=== PATIENT | female | born 1950 | race Hispanic/Latino ===

== ENCOUNTER 2017-06-28 19:58 | Emergency (ER) | payer MEDICARE, OTHER ==
--- NOTE | 2017-06-28 21:05 | XRay Report ---
FINAL REPORT EXAM: XR HUMERUS 2+V RT HISTORY: fall and decreased ROM r/t fall TECHNIQUE: Two views of the right humerus PRIORS: None. FINDINGS: The bones diffusely demineralized. There is acute slightly impacted fracture of the surgical neck of the right proximal humerus. The glenohumeral joint appears normally aligned. There is osteoarthrosis of the acromioclavicular and glenohumeral joints. The soft tissues are unremarkable. IMPRESSION: 1. Acute slightly impacted fracture of the surgical neck of the right proximal humerus 2. Osteopenia is most likely due to osteoporosis
--- NOTE | 2017-06-28 21:09 | XRay Report ---
FINAL REPORT EXAM: XR SHOULDER 2+V RT HISTORY: shoulder pain r/t fall TECHNIQUE: 3 views of the right shoulder PRIORS: None. FINDINGS: There is an acute slightly impacted fracture of the surgical neck of the right proximal humerus. The glenohumeral and acromioclavicular joints are normally aligned. There is osteoarthrosis of both joints. The bones are demineralized. The soft tissues are unremarkable. IMPRESSION: Acute slightly impacted fracture of the surgical neck of the right proximal humerus Osteopenia is most likely due to osteoporosis Osteoarthrosis of the glenohumeral acromioclavicular joints
--- NOTE | 2017-06-28 22:04 | Emergency Department Report ---
ED Fall HPI - General Chief Complaint: Extremity Injury, Upper Stated Complaint: ARM PAIN Time Seen by Provider: 06/28/17 21:41 Source: patient Mode of arrival: Ambulatory - History of Present Illness Initial Comments: Patient is 66-year-old female with history of diabetes and hypertension. Patient presented to the ER complaining OF right shoulder and upper arm pain that started suddenly after she fell why she is going to her car at home. Patient denied any other injury specifically no head or neck injury. No back or other extremity pain. Patient denied any loss of consciousness, weakness, numbness or tingling sensation. Patient also denied any bowel or bladder incontinence. MD Complaint: fall -: Sudden Fall From: standing When Fall Occurred: 1-3 hours [employer] Fall Witnessed: yes, by family Place Fall Occurred: home Loss of Consciousness: none Prolonged Down Time?: no Location - Extremities: Right: Shoulder Severity: moderate Context: tripped/slipped - Related Data Home Medications Medication Instructions Recorded Confirmed Last Taken Insulin Glargine [Lantus VIAL] 80 units SQ QHS 01/23/15 03/04/16 12/10/15 Lisinopril/Hydrochlorothiazide 1 tab PO DAILY 01/23/15 03/04/16 12/10/15 [Lisinopril-Hctz 20-25 mg Tab] Metformin HCl [Glucophage] 1,000 mg PO BID 01/23/15 03/04/16 12/10/15 PARoxetine [Paxil] 20 mg PO DAILY 01/23/15 03/04/16 12/10/15 Sitagliptin Phosphate [Januvia] 100 mg PO DAILY 01/23/15 03/04/16 12/10/15 AtorvaSTATin [Lipitor] 20 mg PO DAILY 12/11/15 03/04/16 12/10/15 Previous Rx's Medication Instructions Recorded Last Taken Type Carboxymethylcellulose Sodium 2 drop OU TID #10 ml 03/04/16 Unknown Rx [Lubricant Eye Drops 1%] Valacyclovir HCl [Valtrex] 1,000 mg PO TID #7 tablet 03/04/16 Unknown Rx predniSONE [Deltasone] 60 mg PO QDAY #21 tab 03/04/16 Unknown Rx Allergies Allergy/AdvReac Type Severity Reaction Status Date / Time No Known Allergies Allergy Unverified 10/09/13 13:48 ED Review of Systems ROS: Stated complaint: ARM PAIN Other details as noted in HPI Comment: All other systems reviewed and negative Constitutional: denies: chills, fever Cardiovascular: denies: chest pain, palpitations, dyspnea on exertion Gastrointestinal: denies: abdominal pain, nausea, vomiting Musculoskeletal: arthralgia. denies: back pain Neurological: denies: headache, weakness, numbness, paresthesias ED Past Medical Hx - Past Medical History Hx Hypertension: Yes Hx Diabetes: Yes Hx Arthritis: Yes Additional medical history: High cholesterol - Surgical History Hx Cholecystectomy: Yes (1982) Hx Appendectomy: Yes (1982) Additional Surgical History: Tubaligation 1982, j[facility]. cataract surgery, Trigger finger both thumbs, Left shoulder surgery - Social History Smoking Status: Unknown if ever smoked Substance Use Type: Alcohol - Medications Home Medications: Home Medications Medication Instructions Recorded Confirmed Last Taken Type Insulin Glargine [Lantus VIAL] 80 units SQ QHS 01/23/15 03/04/16 12/10/15 History Lisinopril/Hydrochlorothiazide 1 tab PO DAILY 01/23/15 03/04/16 12/10/15 History [Lisinopril-Hctz 20-25 mg Tab] Metformin HCl [Glucophage] 1,000 mg PO BID 01/23/15 03/04/16 12/10/15 History PARoxetine [Paxil] 20 mg PO DAILY 01/23/15 03/04/16 12/10/15 History Sitagliptin Phosphate [Januvia] 100 mg PO DAILY 01/23/15 03/04/16 12/10/15 History AtorvaSTATin [Lipitor] 20 mg PO DAILY 12/11/15 03/04/16 12/10/15 History Carboxymethylcellulose Sodium 2 drop OU TID #10 ml 03/04/16 Unknown Rx [Lubricant Eye Drops 1%] Valacyclovir HCl [Valtrex] 1,000 mg PO TID #7 tablet 03/04/16 Unknown Rx predniSONE [Deltasone] 60 mg PO QDAY #21 tab 03/04/16 Unknown Rx ED Physical Exam - General Limitations: No Limitations General appearance: alert, in no apparent distress - Head Head exam: Present: atraumatic, normocephalic, normal inspection - Eye Eye exam: Present: normal appearance, PERRL - ENT ENT exam: Present: normal exam, normal orophraynx, mucous membranes moist - Neck Neck exam: Present: normal inspection, full ROM. Absent: tenderness, meningismus, lymphadenopathy, thyromegaly - Respiratory Respiratory exam: Present: normal lung sounds bilaterally. Absent: respiratory distress, wheezes, rales, rhonchi, stridor, chest wall tenderness, accessory muscle use, decreased breath sounds, prolonged expiratory - Cardiovascular Cardiovascular Exam: Present: regular rate, normal rhythm, normal heart sounds - GI/Abdominal GI/Abdominal exam: Present: soft, normal bowel sounds. Absent: distended, tenderness, guarding, rebound, rigid, organomegaly, mass, bruit, pulsatile mass , hernia - Extremities Exam Extremities exam: Present: normal inspection, full ROM, normal capillary refill. Absent: pedal edema, calf tenderness - Expanded Upper Extremity Exam Right Shoulder Exam: Present: tenderness, swelling. Absent: full ROM, abrasion, laceration, ecchymosis, deformity, dislocation, erythema Upper Arm exam: Present: normal inspection, tenderness. Absent: full ROM, laceration, crepidus, dislocation Elbow exam: Present: normal inspection, full ROM. Absent: tenderness, swelling , abrasion Forearm Wrist exam: Present: normal inspection, full ROM Hand Wrist exam: Present: normal inspection, full ROM. Absent: tenderness, swelling Neuro motor exam: Present: wrist extension intact, thumb opposition intact, thumb IP flexion intact, thumb adduction intact, fingers 2-5 abduction intact Neurosensory exam: Present: 2-point discrimination, radial nerve intact, ulnar nerve intact, median nerve intact - Back Exam Back exam: Present: normal inspection, full ROM - Neurological Exam Neurological exam: Present: alert, oriented X3, CN II-XII intact, normal gait - Skin Skin exam: Present: warm, intact, normal color ED Course Vital Signs 06/28/17 20:08 Temperature 97.7 F Pulse Rate 102 H Respiratory 18 Rate Blood Pressure 150/70 O2 Sat by Pulse 94 Oximetry ED Medical Decision Making - Radiology Data Radiology results: report reviewed Referring Physician: ED DOC Patient Name: MI ROSALES Date of : 1950 Sex: Female Report Date: 2017-06-28 Report Status: Finalized Findings [facility] [address] [place] [address] XRay Report Signed Patient: MI ROSALES MR#: [id number] : 1950 Acct:[id number] Age/Sex: 66 / F ADM Date: 06/28/17 Loc: ED Attending Dr: Ordering Physician: JENNA MEDINA MD Date of Service: 06/28/17 Procedure(s): XR humerus 2+V RT Accession Number(s): [id number] cc: JENNA MEDINA MD Fluoro Time In Minutes: FINAL REPORT EXAM: XR HUMERUS 2+V RT HISTORY: fall and decreased ROM r/t fall TECHNIQUE: Two views of the right humerus PRIORS: None. FINDINGS: The bones diffusely demineralized. There is acute slightly impacted fracture of the surgical neck of the right proximal humerus. The glenohumeral joint appears normally aligned. There is osteoarthrosis of the acromioclavicular and glenohumeral joints. The soft tissues are unremarkable. IMPRESSION: 1. Acute slightly impacted fracture of the surgical neck of the right proximal humerus 2. Osteopenia is most likely due to osteoporosis Transcribed By: [facility] [place] Dictated By: AILEEN SWAIN MD Electronically Authenticated By: AILEEN SWAIN MD Signed Date/Time: 06/28/172099 DD/ 99 TD/TT: 06/28/172099 - Medical Decision Making I discussed the patient was Dr. Jules. Dr. Jules stated that patient can follow-up was seen in his office in the next 2-3 days. Patient and family agreed with the plan. I provided them with a prescription for Percocet and Zofran. I advised patient to return to the ER if her symptoms are not controlled. Critical care attestation.: If time is entered above; I have spent that time in minutes in the direct care of this critically ill patient, excluding procedure time. ED Disposition Clinical Impression: Closed right humeral fracture Disposition: DC-01 TO HOME OR SELFCARE Is pt being admited?: No Condition: Stable Instructions: Arm Fracture in Adults (ED) Referrals: EDWARD JULES MD [Staff Physician] - 3-5 Days
[2017-06-28] MEDS ORDERED: ZOFRAN IM ONE (22:08)
[2017-06-28] MEDS ORDERED: MORPHINE IM ONE (22:08)
[2017-06-28 22:36] VITALS: BP 151/94
== END 2017-06-28 22:43 | disposition home or self-care (01) ==
LOC: ED 19:58
DX: S42.201A Unspecified fracture of upper end of right humerus, initial encounter for closed fracture (principal); W18.30XA Fall on same level, unspecified, initial encounter; Y93.89 Activity, other specified; Y92.89 Other specified places as the place of occurrence of the external cause; Y99.8 Other external cause status
CPT/HCPCS: 73030; 73060; 96372; 99283; J2270; J2405

== ENCOUNTER 2017-07-02 19:11 | Emergency (ER) | payer MEDICARE, OTHER ==
[2017-07-03] MEDS ORDERED: PERCOCET 5/325 ONE (00:53)
[2017-07-03] MEDS ORDERED: PERCOCET 5/325 PO ONE (00:58)
--- NOTE | 2017-07-03 03:48 | Emergency Department Report ---
Upper Extremity - HPI Chief Complaint: Extremity Injury, Upper Stated Complaint: RIGHT ARM,SHOULDER PAIN Time Seen by Provider: 07/03/17 03:24 Upper Extremity: Right Shoulder ED Review of Systems ROS: Stated complaint: RIGHT ARM,SHOULDER PAIN Other details as noted in HPI ED Past Medical Hx - Past Medical History Hx Hypertension: Yes Hx Diabetes: Yes Hx Arthritis: Yes Additional medical history: High cholesterol - Surgical History Hx Cholecystectomy: Yes (1982) Hx Appendectomy: Yes (1982) Additional Surgical History: Tubaligation 1982, j[facility]. cataract surgery, Trigger finger both thumbs, Left shoulder surgery - Social History Smoking Status: Never Smoker Substance Use Type: None - Medications Home Medications: Home Medications Medication Instructions Recorded Confirmed Last Taken Type Insulin Glargine [Lantus VIAL] 80 units SQ QHS 01/23/15 03/04/16 12/10/15 History Lisinopril/Hydrochlorothiazide 1 tab PO DAILY 01/23/15 03/04/16 12/10/15 History [Lisinopril-Hctz 20-25 mg Tab] Metformin HCl [Glucophage] 1,000 mg PO BID 01/23/15 03/04/16 12/10/15 History PARoxetine [Paxil] 20 mg PO DAILY 01/23/15 03/04/16 12/10/15 History Sitagliptin Phosphate [Januvia] 100 mg PO DAILY 01/23/15 03/04/16 12/10/15 History AtorvaSTATin [Lipitor] 20 mg PO DAILY 12/11/15 03/04/16 12/10/15 History Carboxymethylcellulose Sodium 2 drop OU TID #10 ml 03/04/16 Unknown Rx [Lubricant Eye Drops 1%] Valacyclovir HCl [Valtrex] 1,000 mg PO TID #7 tablet 03/04/16 Unknown Rx predniSONE [Deltasone] 60 mg PO QDAY #21 tab 03/04/16 Unknown Rx Ondansetron [Zofran Odt] 4 mg PO Q8HR PRN #14 tab.rapdis 06/28/17 Unknown Rx oxyCODONE /ACETAMINOPHEN [Percocet 1 tab PO Q6HR PRN #14 tablet 06/28/17 Unknown Rx 5/325] oxyCODONE /ACETAMINOPHEN [Percocet 1 tab PO Q6HR PRN #12 tablet 07/03/17 Unknown Rx 5/325] Upper Extremity Exam - Exam General: Vital signs noted. No distress. Alert and acting appropriately. ED Course Vital Signs 07/02/17 07/03/17 20:48 00:59 Temperature 98.3 F Pulse Rate 96 H Respiratory 18 18 Rate Blood Pressure 144/63 O2 Sat by Pulse 96 Oximetry Critical care attestation.: If time is entered above; I have spent that time in minutes in the direct care of this critically ill patient, excluding procedure time. ED Disposition Clinical Impression: Closed right humeral fracture Qualifiers: Encounter type: initial encounter Disposition: - TO HOME OR SELFCARE Is pt being admited?: No Does the pt Need Aspirin: No Condition: Stable Instructions: Arm Fracture in Adults (ED) Prescriptions: oxyCODONE /ACETAMINOPHEN [Percocet 5/325] 1 tab PO Q6HR PRN #12 tablet PRN Reason: Pain Referrals: EDWARD JORDAN MD [Staff Physician] - 3-5 Days Forms: Accompanied Note Time of Disposition: 04:12
[2017-07-03] MEDS ORDERED: DILAUDID IM ONE (03:57)
[2017-07-03 04:33] VITALS: BP 132/68
== END 2017-07-03 04:32 | disposition home or self-care (01) ==
LOC: ED 19:11
DX: S42.301A Unspecified fracture of shaft of humerus, right arm, initial encounter for closed fracture (principal); I10 Essential (primary) hypertension; E11.9 Type 2 diabetes mellitus without complications; M19.90 Unspecified osteoarthritis, unspecified site; E78.00 Pure hypercholesterolemia, unspecified; X58.XXXA Exposure to other specified factors, initial encounter; Y93.89 Activity, other specified; Y92.89 Other specified places as the place of occurrence of the external cause; Y99.8 Other external cause status
CPT/HCPCS: 29105; 96372; 99282; J1170

== ENCOUNTER 2017-07-24 12:32 | Outpatient (CLI) | payer MEDICARE, OTHER ==
--- NOTE | 2017-07-24 13:39 | XRay Report ---
RIGHT SHOULDER, 3 VIEWS: HISTORY: Fracture of right shoulder girdle. The comminuted fracture of the right humeral head and neck appears unchanged in position and alignment since 06/28/17. Mild calcified callus is identified at the fracture site consistent with interval healing although fracture lines remain evident. The remaining bony structures are intact. Advanced osteoarthritis is stable. IMPRESSION: Healing fracture of the proximal right humerus as described.
== END 2017-07-24 12:33 | disposition home or self-care (01) ==
LOC: XRAY 12:32
PROVIDERS: ATTEND Orthopaedic Surgery
DX: S42.291D Other displaced fracture of upper end of right humerus, subsequent encounter for fracture with routine healing (principal); X58.XXXD Exposure to other specified factors, subsequent encounter; M19.011 Primary osteoarthritis, right shoulder

== ENCOUNTER 2017-09-25 16:20 | Outpatient (CLI) | payer MEDICARE, OTHER ==
--- NOTE | 2017-09-26 00:31 | XRay Report ---
FINAL REPORT EXAM: XR SHOULDER 2+V RT HISTORY: FRAACTURE OF RIGHT SHOULDER GIRDLE COMPARISON: June 2017. FINDINGS: Three views the right shoulder obtained. Prominent osteophyte of the distal clavicle with narrowing of the AC joint. Re-demonstration of comminuted fracture impacted fracture of the humeral head neck. Faint fracture line remain with callus formation at the fracture sites compared to prior study. Findings are compatible partial interval healing. Stable narrowing of the glenohumeral joint space. No dislocation. Osteophyte along the glenoid rim. IMPRESSION: Partial healing of comminuted and impacted humeral neck and head fracture. Stable degenerative changes.
--- NOTE | 2017-09-26 00:32 | XRay Report ---
FINAL REPORT EXAM: XR KNEES STANDING AP BILATERAL HISTORY: PAIN IN BILATERAL KNEES COMPARISON: None available. FINDINGS: Two views of each knee obtained with weight-bearing. On the left, there is minimal narrowing of the medial joint space with mild marginal osteophyte of the medial lateral femoral condyles. Moderate narrowing of the patellofemoral joint space with osteophyte. No suprapatellar effusion. No acute fracture. Medial lateral joint space compartments of the right knee are preserved. Mild narrowing hypertrophic spurring of the patellofemoral joint space. No suprapatellar effusion. No acute fracture. IMPRESSION: Moderate degenerative changes of the left knee most pronounced along the patellofemoral joint space compartment. Mild degenerative changes the right knee most pronounced along the patellofemoral joint space compartment.
== END 2017-09-25 16:21 | disposition home or self-care (01) ==
LOC: XRAY 16:20
PROVIDERS: ATTEND Orthopaedic Surgery
DX: S42.91XD Fracture of right shoulder girdle, part unspecified, subsequent encounter for fracture with routine healing (principal); M17.0 Bilateral primary osteoarthritis of knee; M19.011 Primary osteoarthritis, right shoulder; I10 Essential (primary) hypertension; Z90.49 Acquired absence of other specified parts of digestive tract; Z90.89 Acquired absence of other organs; X58.XXXD Exposure to other specified factors, subsequent encounter
CPT/HCPCS: 73565

== ENCOUNTER 2019-12-12 02:07 | Emergency (ER) | payer MEDICARE, OTHER ==
[2019-12-12 02:24] VITALS: BP 150/77
--- NOTE | 2019-12-12 03:09 | XRay Report ---
LEFT FOOT 3 VIEWS INDICATION / CLINICAL INFORMATION: left foot red ands swollen. COMPARISON: None available. FINDINGS: BONES/JOINT(S): No acute fracture or subluxation. Mild DJD first MTP joint. No bone lysis to suggest osteomyelitis. SOFT TISSUES: Mild generalized soft tissue swelling. No radiopaque foreign body or soft tissue gas. ADDITIONAL FINDINGS: None. Signer Name: Denzel Hernandez MD Signed: 12/12/2019 3:04 AM Workstation Name: [id number]
[2019-12-12] MEDS ORDERED: ACETAMINOPHEN 500 MG TAB PO ONE (04:13)
[2019-12-12 04:49] LABS: Basophils # (Auto) 0.1 K/mm3 (0.0-0.1); Basophils % (Auto) 1.1 % (0.0-1.8); Eosinophils # (Auto) 0.6 K/mm3 (0.0-0.4); Eosinophils % (Auto) 5.4 % (0.0-4.3); Hemoglobin 12.9 gm/dl (10.1-14.3); Lymphocytes # (Auto) 4.2 K/mm3 (1.2-5.4); Lymphocytes % (Auto) 36.7 % (13.4-35.0); Monocytes # (Auto) 0.7 K/mm3 (0.0-0.8); Monocytes % (Auto) 6.1 % (0.0-7.3)
[2019-12-12 04:56] LABS: Hematocrit 37.9 % (30.3-42.9); Mean Corpuscular HGB Conc 34 % (30-34); Mean Corpuscular Volume 87 fl (79-97); Platelet Count 264 K/mm3 (140-440); Red Blood Count 4.35 M/mm3 (3.65-5.03); Red Cell Distribution Width 15.6 % (13.2-15.2)
[2019-12-12 05:12] LABS: Alanine Aminotransferase 20 units/L (7-56); Blood Urea Nitrogen 14 mg/dL (7-17); Calcium 10.1 mg/dL (8.4-10.2); Hemolysis Index 199; Uric Acid 5.9 mg/dL (3.5-7.6)
[2019-12-12 05:15] LABS: BUN/Creatinine Ratio 20
--- NOTE | 2019-12-12 05:55 | Emergency Department Report ---
ED Extremity Problem HPI - General Chief complaint: Extremity Injury, Lower Stated complaint: LT FOOT PAIN Source: patient Mode of arrival: Ambulatory Limitations: No Limitations - History of Present Illness Initial comments: Patient is a 69-year-old white female with a history of hypertension and xqm-hvmnooq-ugutwcmjv diabetes as well as osteoarthritis who presents to the ED with complaint of acute onset persistent painful dorsal left foot with swelling and erythematous maculopapular rash with itching and burning sensation for the last 24 hours. Patient states that she suspects that she may have been bitten by an unknown insect before the development of the symptoms. Patient denies fall, traumatic injury, heavy lifting, nausea, vomiting, fever, chills, numbness and tingling or weakness of left leg, chest pain, shortness of breath or low back pain. MD Complaint: extremity pain (Left foot), extremity swelling (Left foot), joint swelling (left foot), joint paint (left foot), other (Insect bite of left foot) -: Sudden, hour(s) (24) Location: left, lower extremity (left foot) History of Same: No -: Yes myalgia, Yes arthralgia, No fever, No associated dyspnea, No associated chest pain Radiation: distal Severity scale (0 -10): 5 Quality: burning, aching, sharp, constant Consistency: constant Improves with: nothing Worsens with: weight bearing, exertion, palpation Associated Symptoms: denies other symptoms, myalgias, arthralgias, rash (erythematous rash on dorsal left foot). denies: chest pain, shortness of breath, fever - Related Data Home Medications Medication Instructions Recorded Confirmed Last Taken Insulin Glargine [Lantus VIAL] 80 units SQ QHS 01/23/15 03/04/16 12/10/15 Lisinopril/Hydrochlorothiazide 1 tab PO DAILY 01/23/15 03/04/16 12/10/15 [Lisinopril-Hctz 20-25 mg Tab] Metformin HCl [Glucophage] 1,000 mg PO BID 01/23/15 03/04/16 12/10/15 PARoxetine [Paxil] 20 mg PO DAILY 01/23/15 03/04/16 12/10/15 Sitagliptin Phosphate [Januvia] 100 mg PO DAILY 01/23/15 03/04/16 12/10/15 AtorvaSTATin [Lipitor] 20 mg PO DAILY 12/11/15 03/04/16 12/10/15 Previous Rx's Medication Instructions Recorded Last Taken Type Carboxymethylcellulose Sodium 2 drop OU TID #10 ml 03/04/16 Unknown Rx [Lubricant Eye Drops 1%] Valacyclovir HCl [Valtrex] 1,000 mg PO TID #7 tablet 03/04/16 Unknown Rx predniSONE [Deltasone] 60 mg PO QDAY #21 tab 03/04/16 Unknown Rx Ondansetron [Zofran Odt] 4 mg PO Q8HR PRN #14 tab.rapdis 06/28/17 Unknown Rx oxyCODONE /ACETAMINOPHEN [Percocet 1 tab PO Q6HR PRN #14 tablet 06/28/17 Unknown Rx 5/325] oxyCODONE /ACETAMINOPHEN [Percocet 1 tab PO Q6HR PRN #12 tablet 07/03/17 Unknown Rx 5/325] Ibuprofen [Motrin] 800 mg PO Q8HR PRN #30 tablet 12/12/19 Unknown Rx Sulfamethoxazole/Trimethoprim 1 each PO Q12H #20 tablet 12/12/19 Unknown Rx [Bactrim DS TAB] traMADoL [Ultram] 50 mg PO Q6HR PRN #12 tablet 12/12/19 Unknown Rx Allergies Allergy/AdvReac Type Severity Reaction Status Date / Time No Known Allergies Allergy Unverified 10/09/13 13:48 ED Review of Systems ROS: Stated complaint: LT FOOT PAIN Other details as noted in HPI Constitutional: denies: chills, fever Eyes: denies: eye pain, eye discharge, vision change ENT: denies: ear pain, throat pain Respiratory: denies: cough, shortness of breath, wheezing Cardiovascular: denies: chest pain, palpitations Endocrine: no symptoms reported Gastrointestinal: denies: abdominal pain, nausea, diarrhea Genitourinary: denies: urgency, dysuria, discharge Musculoskeletal: joint swelling (Left foot swelling with pain), arthralgia (Left foot pain with swelling), other (Painful and mildly swollen dorsal left foot). denies: back pain Skin: rash (Erythematous maculopapular rash on dorsal left foot), change in color, pruritus. denies: lesions Neurological: denies: headache, weakness, paresthesias Psychiatric: denies: anxiety, depression Hematological/Lymphatic: denies: easy bleeding, easy bruising ED Past Medical Hx - Past Medical History Hx Hypertension: Yes Hx Diabetes: Yes Hx Arthritis: Yes Additional medical history: High cholesterol - Surgical History Past Surgical History?: Yes Hx Cholecystectomy: Yes (1982) Hx Appendectomy: Yes (1982) Additional Surgical History: Tubaligation 1982, jorden. cataract surgery, Trigger finger both thumbs, Left shoulder surgery - Social History Smoking Status: Former Smoker Substance Use Type: None - Medications Home Medications: Home Medications Medication Instructions Recorded Confirmed Last Taken Type Insulin Glargine [Lantus VIAL] 80 units SQ QHS 01/23/15 03/04/16 12/10/15 History Lisinopril/Hydrochlorothiazide 1 tab PO DAILY 01/23/15 03/04/16 12/10/15 History [Lisinopril-Hctz 20-25 mg Tab] Metformin HCl [Glucophage] 1,000 mg PO BID 01/23/15 03/04/16 12/10/15 History PARoxetine [Paxil] 20 mg PO DAILY 01/23/15 03/04/16 12/10/15 History Sitagliptin Phosphate [Januvia] 100 mg PO DAILY 01/23/15 03/04/16 12/10/15 History AtorvaSTATin [Lipitor] 20 mg PO DAILY 12/11/15 03/04/16 12/10/15 History Carboxymethylcellulose Sodium 2 drop OU TID #10 ml 03/04/16 Unknown Rx [Lubricant Eye Drops 1%] Valacyclovir HCl [Valtrex] 1,000 mg PO TID #7 tablet 03/04/16 Unknown Rx predniSONE [Deltasone] 60 mg PO QDAY #21 tab 03/04/16 Unknown Rx Ondansetron [Zofran Odt] 4 mg PO Q8HR PRN #14 tab.rapdis 06/28/17 Unknown Rx oxyCODONE /ACETAMINOPHEN [Percocet 1 tab PO Q6HR PRN #14 tablet 06/28/17 Unknown Rx 5/325] oxyCODONE /ACETAMINOPHEN [Percocet 1 tab PO Q6HR PRN #12 tablet 07/03/17 Unknown Rx 5/325] Ibuprofen [Motrin] 800 mg PO Q8HR PRN #30 tablet 12/12/19 Unknown Rx Sulfamethoxazole/Trimethoprim 1 each PO Q12H #20 tablet 12/12/19 Unknown Rx [Bactrim DS TAB] traMADoL [Ultram] 50 mg PO Q6HR PRN #12 tablet 12/12/19 Unknown Rx ED Physical Exam - General Limitations: No Limitations General appearance: alert, in no apparent distress - Head Head exam: Present: atraumatic, normocephalic, normal inspection - Eye Eye exam: Present: normal appearance, PERRL, EOMI Pupils: Present: normal accommodation - ENT ENT exam: Present: normal exam, normal orophraynx, mucous membranes moist, TM's normal bilaterally, normal external ear exam - Neck Neck exam: Present: normal inspection, full ROM - Respiratory Respiratory exam: Present: normal lung sounds bilaterally. Absent: respiratory distress, wheezes, rales, rhonchi, chest wall tenderness, accessory muscle use, decreased breath sounds, prolonged expiratory - Cardiovascular Cardiovascular Exam: Present: regular rate, normal rhythm, normal heart sounds. Absent: systolic murmur, diastolic murmur, rubs, gallop - GI/Abdominal GI/Abdominal exam: Present: soft, normal bowel sounds. Absent: tenderness, guarding, rebound, hyperactive bowel sounds, hypoactive bowel sounds, organomegaly - Extremities Exam Extremities exam: Present: normal inspection, full ROM, tenderness (Palpable moderate dorsal left foot tenderness with swelling due to erythematous maculopapular rash), normal capillary refill, joint swelling. Absent: calf tenderness - Back Exam Back exam: Present: normal inspection, full ROM. Absent: tenderness, CVA tenderness (R), CVA tenderness (L), muscle spasm, paraspinal tenderness, vertebral tenderness, rash noted - Neurological Exam Neurological exam: Present: alert, oriented X3, CN II-XII intact, normal gait, reflexes normal - Psychiatric Psychiatric exam: Present: normal affect, normal mood - Skin Skin exam: Present: warm, dry, intact, normal color, rash (Erythematous maculopapular rash on dorsal left foot), erythema, urticaria ED Course Vital Signs 12/12/19 02:13 Temperature 98.4 F Pulse Rate 96 H Respiratory 18 Rate Blood Pressure 150/77 O2 Sat by Pulse 95 Oximetry ED Medical Decision Making - Lab Data Result diagrams: 12/12/19 04:31 12/12/19 04:31 - Radiology Data Radiology results: report reviewed, image reviewed Findings [facility] [address] [place] [address] XRay Report Signed Patient: MI ROSALES MR#: [id number] : 1950 Acct:[id number] Age/Sex: 69 / F ADM Date: 12/12/19 Loc: ED Attending Dr: Ordering Physician: JENNA MEDINA MD Date of Service: 12/12/19 Procedure(s): XR foot 3+V LT Accession Number(s): [id number] cc: JENNA MEDINA MD Fluoro Time In Minutes: LEFT FOOT 3 VIEWS INDICATION / CLINICAL INFORMATION: left foot red ands swollen. COMPARISON: None available. FINDINGS: BONES/JOINT(S): No acute fracture or subluxation. Mild DJD first MTP joint. No bone lysis to suggest osteomyelitis. SOFT TISSUES: Mild generalized soft tissue swelling. No radiopaque foreign body or soft tissue gas. ADDITIONAL FINDINGS: None. Signer Name: Denzel Hernandez MD Signed: 12/12/2019 3:04 AM Workstation Name: [id number] Transcribed By: SCOOBY Dictated By: Denzel Hernandez MD Electronically Authenticated By: Denzel Hernandez MD Signed Date/Time: 12/12/19303 DD/ 3 TD/TT: - Medical Decision Making This is a 69-year-old white female with a history of hypertension and elf-[id number] diabetes as well as osteoarthritis who presents to the ED with complaint of acute onset persistent painful dorsal left foot with swelling and erythematous maculopapular rash with itching and burning sensation for the last 24 hours. Patient states that she suspects that she may have been bitten by an unknown insect before the development of the symptoms. In the ED, patient is alert and oriented x3 and is not in distress. Patient was treated for pain in the ED and also given empirical antibiotics clindamycin IV x1. Lab test results were reviewed and showed mild acute leukocytosis of 11,500 and hyperglycemia of 189 mg/dL. The rest of the lab test results including uric acid levels were normal. Left foot x-ray shows no acute fractures or subluxations. On reevaluation, patient felt better pain is well controlled medications. Patient was discharged home on pain medication and antibiotics. Patient was advised to return to the ED immediately if symptoms get worse, otherwise follow-up with her primary care physician in 5 to 7 days for reevaluation. - Differential Diagnosis Cellulitis; allergic reaction; insect bite; osteoarthritis; gout Critical care attestation.: If time is entered above; I have spent that time in minutes in the direct care of this critically ill patient, excluding procedure time. ED Disposition Clinical Impression: Cellulitis of left foot excluding toes Insect bite of left foot with local reaction Qualifiers: Encounter type: initial encounter Qualified Code(s): S90.862A - Insect bite (nonvenomous), left foot, initial encounter; W57.XXXA - Bitten or stung by nonvenomous insect and other nonvenomous arthropods, initial encounter Disposition: TO HOME OR SELFCARE Is pt being admited?: No Does the pt Need Aspirin: No Condition: Stable Instructions: Cellulitis (ED), Insect Bite or Sting (ED), Allergies (ED), Urticaria (ED) Additional Instructions: All lab test results are nonactionable. Left foot x-ray shows no acute fractures or subluxations. Take medications with food, drink plenty of fluids and follow-up with your primary care physician in 5 to 7 days for reevaluation. Return to the ED immediately if symptoms get worse. Prescriptions: Sulfamethoxazole/Trimethoprim [Bactrim DS TAB] 1 each PO Q12H #20 tablet Ibuprofen [Motrin] 800 mg PO Q8HR PRN #30 tablet PRN Reason: Pain , Severe (7-10) traMADoL [Ultram] 50 mg PO Q6HR PRN #12 tablet PRN Reason: Pain Referrals: BRENDON SCHMIDT MD [Staff Physician] - 3-5 Days Time of Disposition: 05:53 Print Language: MALTESE
== END 2019-12-12 06:30 | disposition home or self-care (01) ==
LOC: ED 02:07
DX: S90.862A Insect bite (nonvenomous), left foot, initial encounter (principal); L03.116 Cellulitis of left lower limb; I10 Essential (primary) hypertension; E11.9 Type 2 diabetes mellitus without complications; M19.91 Primary osteoarthritis, unspecified site; Z90.49 Acquired absence of other specified parts of digestive tract; Z98.51 Tubal ligation status; Z98.890 Other specified postprocedural states; Z79.899 Other long term (current) drug therapy; Z79.4 Long term (current) use of insulin; Z79.1 Long term (current) use of non-steroidal anti-inflammatories (NSAID); Z87.891 Personal history of nicotine dependence; W57.XXXA Bitten or stung by nonvenomous insect and other nonvenomous arthropods, initial encounter; Y93.89 Activity, other specified; Y92.89 Other specified places as the place of occurrence of the external cause; Y99.8 Other external cause status
CPT/HCPCS: 36415; 80053; 84550; 85025; 96365

== ENCOUNTER 2019-12-30 15:02 | Emergency (ER) | payer MEDICARE, OTHER ==
--- NOTE | 2019-12-30 16:27 | Event Note ---
ED Screening Note Date of service: 12/30/19 Time: 16:23 ED Screening Note: Pt c/o buttocks and mid back pain x 3 days and dizziness x last night fell on escalator onto bottom and hit head; denies LoC, N/V, CP, SOB denies numbness/difficulty walking/loss of bladder bowel control This initial assessment/diagnostic orders/clinical plan/treatment(s) is/are subject to change based on patients health status, clinical progression and re- assessment by fellow clinical providers in the ED. Further treatment and workup at subsequent clinical providers discretion. Patient/guardian urged not to elope from the ED as their condition may be serious if not clinically assessed and managed. Initial orders include: XRs labs ekg
--- NOTE | 2019-12-30 17:28 | XRay Report ---
THORACIC SPINE 2 VIEWS INDICATION: Back pain, injury. COMPARISON: None. IMPRESSION: Normal alignment. Moderate multilevel degenerative disc disease is evident. No acute o sseous or soft tissue abnormality. SACRUM AND COCCYX 2 VIEWS INDICATION: Pain injury. COMPARISON: None. IMPRESSION: No acute osseous abnormality is appreciated. No diastases. There are moderate osteoarthr itic changes at the SI joints. Signer Name: Jose Guardado Jr, MD Signed: 12/30/2019 5:23 PM Workstation Name: [id number]
--- NOTE | 2019-12-30 17:36 | XRay Report ---
LUMBAR SPINE 3 VIEWS INDICATION / CLINICAL INFORMATION: MAIN. COMPARISON: None available. FINDINGS: Narrowing of the L4-5 disc space. Anterior osteophyte formation in the thoracolumbar region. No other significant skeletal abnormality. Alignment is normal. Signer Name: Rasheed Juárez MD FACHeather Signed: 12/30/2019 5:31 PM Workstation Name: [id number]
--- NOTE | 2019-12-30 17:40 | Cat Scan Report ---
CT HEAD WITHOUT CONTRAST INDICATION / CLINICAL INFORMATION: dizziness after head injury. TECHNIQUE: Axial imaging performed from the skull apex through the skull base without the use of cont rast. Sagittal and coronal reformatted images. All CT scans at this location are performed using CT dose reduction for ALARA by means of automated exposure control. COMPARISON: None available. FINDINGS: CEREBRAL PARENCHYMA: No significant abnormality. No acute territorial infarct. HEMORRHAGE: None. EXTRA-AXIAL SPACES: Normal in size and morphology for the patient's age. VENTRICULAR SYSTEM: Normal in size and morphology for the patient's age. MIDLINE SHIFT OR HERNIATION: None. CEREBELLUM / BRAINSTEM: No significant abnormality. CALVARIUM: No significant abnormality. ORBITS: Normal as visualized. PARANASAL SINUSES / MASTOID AIR CELLS: Normal as visualized. SOFT TISSUES of HEAD: Left parietal soft tissue swelling/hematoma is noted measuring 2.6 x 0.7 cm in axial plane. ADDITIONAL FINDINGS: None. IMPRESSION: No acute intracranial abnormality. Left parietal soft tissue injury. Signer Name: Jose Guardado Jr, MD Signed: 12/30/2019 5:36 PM Workstation Name: [id number]
[2019-12-30 17:52] LABS: Basophils # (Auto) 0.1 K/mm3 (0.0-0.1); Eosinophils # (Auto) 0.3 K/mm3 (0.0-0.4); Eosinophils % (Auto) 2.8 % (0.0-4.3); Hematocrit 39.3 % (30.3-42.9); Hemoglobin 12.7 gm/dl (10.1-14.3); Lymphocytes # (Auto) 2.7 K/mm3 (1.2-5.4); Lymphocytes % (Auto) 23.8 % (13.4-35.0); Mean Corpuscular HGB Conc 32 % (30-34); Mean Corpuscular Volume 90 fl (79-97); Monocytes # (Auto) 0.7 K/mm3 (0.0-0.8); Monocytes % (Auto) 6.1 % (0.0-7.3); Platelet Count 252 K/mm3 (140-440); Red Blood Count 4.36 M/mm3 (3.65-5.03); Red Cell Distribution Width 15.5 % (13.2-15.2)
[2019-12-30 18:12] LABS: Alanine Aminotransferase 12 units/L (7-56); Albumin 4.2 g/dL (3.9-5); BUN/Creatinine Ratio 30; Blood Urea Nitrogen 27 mg/dL (7-17); Calcium 9.7 mg/dL (8.4-10.2); Hemolysis Index 4
[2019-12-30] MEDS ORDERED: ONDANSETRON 4 MG/2 ML INJ IM ONE (21:46)
[2019-12-30] MEDS ORDERED: MORPHINE 4 MG/1 ML INJ IM ONE (21:46)
--- NOTE | 2019-12-30 21:52 | Emergency Department Report ---
ED Fall HPI - General Chief Complaint: Fall Stated Complaint: ABD PAINS Time Seen by Provider: 12/30/19 16:23 Source: patient Mode of arrival: Ambulatory - History of Present Illness Initial Comments: Patient is 69 years old female with history of hypertension and diabetes. Grecia ent presented to the ER for evaluation after a fall that happened 3 days ago. Patient stated that she missed a step and fell from a escalator few steps down landed on her buttock. Patient stated that she hit her head also. She is complaining of headache mid thoracic and lower lumbar pain. Patient denied any focal weakness, numbness or tingling sensation. No bowel or bladder incontinence. Patient stated that she was diagnosed with COVID-19 few months ago and since then she has been having some dizziness but since the accident is getting worse. 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 (3) Place Fall Occurred: street Loss of Consciousness: none Prolonged Down Time?: no Symptoms Prior to Fall: none Context: tripped/slipped Associated Symptoms: denies - Related Data Home Medications Medication Instructions Recorded Confirmed Last Taken Insulin Glargine [Lantus VIAL] 80 units SQ QHS 01/23/15 03/04/16 12/10/15 Lisinopril/Hydrochlorothiazide 1 tab PO DAILY 01/23/15 03/04/16 12/10/15 [Lisinopril-Hctz 20-25 mg Tab] Metformin HCl [Glucophage] 1,000 mg PO BID 01/23/15 03/04/16 12/10/15 PARoxetine [Paxil] 20 mg PO DAILY 01/23/15 03/04/16 12/10/15 Sitagliptin Phosphate [Januvia] 100 mg PO DAILY 01/23/15 03/04/16 12/10/15 AtorvaSTATin [Lipitor] 20 mg PO DAILY 12/11/15 03/04/16 12/10/15 Previous Rx's Medication Instructions Recorded Last Taken Type Carboxymethylcellulose Sodium 2 drop OU TID #10 ml 03/04/16 Unknown Rx [Lubricant Eye Drops 1%] Valacyclovir HCl [Valtrex] 1,000 mg PO TID #7 tablet 03/04/16 Unknown Rx predniSONE [Deltasone] 60 mg PO QDAY #21 tab 03/04/16 Unknown Rx Ondansetron [Zofran Odt] 4 mg PO Q8HR PRN #14 tab.rapdis 06/28/17 Unknown Rx oxyCODONE /ACETAMINOPHEN [Percocet 1 tab PO Q6HR PRN #14 tablet 06/28/17 Unknown Rx 5/325] oxyCODONE /ACETAMINOPHEN [Percocet 1 tab PO Q6HR PRN #12 tablet 07/03/17 Unknown Rx 5/325] Ibuprofen [Motrin] 800 mg PO Q8HR PRN #30 tablet 12/12/19 Unknown Rx Sulfamethoxazole/Trimethoprim 1 each PO Q12H #20 tablet 12/12/19 Unknown Rx [Bactrim DS TAB] traMADoL [Ultram] 50 mg PO Q6HR PRN #12 tablet 12/12/19 Unknown Rx Allergies Allergy/AdvReac Type Severity Reaction Status Date / Time No Known Allergies Allergy Unverified 10/09/13 13:48 ED Review of Systems ROS: Stated complaint: ABD PAINS Other details as noted in HPI Comment: All other systems reviewed and negative Constitutional: denies: chills, fever Respiratory: denies: cough, shortness of breath, SOB with exertion, SOB at rest, wheezing Cardiovascular: denies: chest pain, palpitations Gastrointestinal: denies: abdominal pain, nausea, vomiting, diarrhea, constipation, hematemesis, melena, hematochezia Musculoskeletal: back pain. denies: joint swelling, myalgia Neurological: headache, vertigo. denies: weakness, numbness, paresthesias, confusion, abnormal gait ED Past Medical Hx - Past Medical History Hx Hypertension: Yes Hx Diabetes: Yes Hx Arthritis: Yes Additional medical history: High cholesterol - Surgical History Hx Cholecystectomy: Yes (1982) Hx Appendectomy: Yes (1982) Additional Surgical History: Tubaligation 1982, jorden. cataract surgery, Trigger finger both thumbs, Left shoulder surgery - Social History Smoking Status: Never Smoker - Medications Home Medications: Home Medications Medication Instructions Recorded Confirmed Last Taken Type Insulin Glargine [Lantus VIAL] 80 units SQ QHS 01/23/15 03/04/16 12/10/15 History Lisinopril/Hydrochlorothiazide 1 tab PO DAILY 01/23/15 03/04/16 12/10/15 History [Lisinopril-Hctz 20-25 mg Tab] Metformin HCl [Glucophage] 1,000 mg PO BID 01/23/15 03/04/16 12/10/15 History PARoxetine [Paxil] 20 mg PO DAILY 01/23/15 03/04/16 12/10/15 History Sitagliptin Phosphate [Januvia] 100 mg PO DAILY 01/23/15 03/04/16 12/10/15 History AtorvaSTATin [Lipitor] 20 mg PO DAILY 12/11/15 03/04/16 12/10/15 History Carboxymethylcellulose Sodium 2 drop OU TID #10 ml 03/04/16 Unknown Rx [Lubricant Eye Drops 1%] Valacyclovir HCl [Valtrex] 1,000 mg PO TID #7 tablet 03/04/16 Unknown Rx predniSONE [Deltasone] 60 mg PO QDAY #21 tab 03/04/16 Unknown Rx Ondansetron [Zofran Odt] 4 mg PO Q8HR PRN #14 tab.rapdis 06/28/17 Unknown Rx oxyCODONE /ACETAMINOPHEN [Percocet 1 tab PO Q6HR PRN #14 tablet 06/28/17 Unknown Rx 5/325] oxyCODONE /ACETAMINOPHEN [Percocet 1 tab PO Q6HR PRN #12 tablet 07/03/17 Unknown Rx 5/325] Ibuprofen [Motrin] 800 mg PO Q8HR PRN #30 tablet 12/12/19 Unknown Rx Sulfamethoxazole/Trimethoprim 1 each PO Q12H #20 tablet 12/12/19 Unknown Rx [Bactrim DS TAB] traMADoL [Ultram] 50 mg PO Q6HR PRN #12 tablet 12/12/19 Unknown Rx ED Physical Exam - General Limitations: No Limitations General appearance: alert, in no apparent distress - Head Head exam: Present: normocephalic, normal inspection, other (Soft tissue swelling.) - Eye Eye exam: Present: normal appearance - ENT ENT exam: Present: normal exam, normal orophraynx, mucous membranes moist - Neck Neck exam: Present: normal inspection, full ROM. Absent: tenderness, meningismus - Respiratory Respiratory exam: Present: normal lung sounds bilaterally - Cardiovascular Cardiovascular Exam: Present: regular rate, normal rhythm, normal heart sounds - GI/Abdominal GI/Abdominal exam: Present: soft, normal bowel sounds. Absent: distended, tenderness, guarding, rebound, rigid, organomegaly, mass, bruit, pulsatile mass, hernia - Extremities Exam Extremities exam: Present: normal inspection, full ROM, normal capillary refill. Absent: pedal edema, calf tenderness - Back Exam Back exam: Present: normal inspection, full ROM. Absent: CVA tenderness (R), C VA tenderness (L), muscle spasm, paraspinal tenderness, vertebral tenderness - Neurological Exam Neurological exam: Present: alert, oriented X3, CN II-XII intact, normal gait, reflexes normal. Absent: motor sensory deficit - Psychiatric Psychiatric exam: Present: normal mood - Skin Skin exam: Present: warm, intact, normal color ED Course Vital Signs 12/30/19 16:25 Temperature 98.1 F Pulse Rate 82 Respiratory 18 Rate Blood Pressure 101/63 O2 Sat by Pulse 97 Oximetry ED Medical Decision Making - Lab Data Result diagrams: 12/30/19 17:14 12/30/19 17:14 - EKG Data -: EKG Interpreted by Mo EKG shows normal: sinus rhythm Rate: normal - EKG Data Interpretation: no acute changes - Radiology Data Radiology results: report reviewed - Medical Decision Making Patient is 69 years old female with history of hypertension and diabetes. Patient presented to the ER for evaluation after a fall that happened 3 days ago. Patient stated that she missed a step and fell from a escalator few steps down landed on her buttock. Patient stated that she hit her head also. She is complaining of headache mid thoracic and lower lumbar pain. Patient denied any focal weakness, numbness or tingling sensation. No bowel or bladder incontinence. Patient stated that she was diagnosed with COVID-19 few months ago and since then she has been having some dizziness but since the accident is getting worse. EKG is unremarkable. Patient denies any chest pain or shortness of breath. Labs reviewed and is unremarkable. CT brain is negative for acute finding except for soft tissue swelling. X-ray of the lumbar sacral and thoracic spine is negative for acute finding. Patient received morphine for pain and stated that it helped with her symptoms. Patient advised to follow-up with her primary doctor in the next 2 to 3 days and to return to the ER if she develop any new symptoms. Critical care attestation.: If time is entered above; I have spent that time in minutes in the direct care of this critically ill patient, excluding procedure time. ED Disposition Clinical Impression: Fall, Head injury, Dizziness Disposition: - TO HOME OR SELFCARE Is pt being admited?: No Condition: Stable Instructions: Concussion (ED), Minor Head Injury (ED), Dizziness (ED) Referrals: PRIMARY CARE,MD [Primary Care Provider] - 3-5 Days
[2019-12-30 21:57] VITALS: BP 116/56
== END 2019-12-30 23:10 | disposition home or self-care (01) ==
LOC: ED 15:02
DX: S09.90XA Unspecified injury of head, initial encounter (principal); R42 Dizziness and giddiness; I10 Essential (primary) hypertension; E11.9 Type 2 diabetes mellitus without complications; M19.90 Unspecified osteoarthritis, unspecified site; Z90.49 Acquired absence of other specified parts of digestive tract; Z98.890 Other specified postprocedural states; Z98.51 Tubal ligation status; Z79.899 Other long term (current) drug therapy; W10.0XXA Fall (on)(from) escalator, initial encounter; Y93.89 Activity, other specified; Y92.89 Other specified places as the place of occurrence of the external cause; Y99.8 Other external cause status
CPT/HCPCS: 36415; 70450; 72070; 72100; 72220; 80053; 84484; 85025; 93005; 96372; 99284; J2270; J2405